=== PATIENT | male | born 1970 | race Caucasian/White ===

== ENCOUNTER 2017-08-16 10:34 | Inpatient (IN) | payer OTHER ==
[2017-08-16] MEDS ORDERED: Fentanyl 100 MCG/2 ML VIAL ONE ×7 (10:40→19:30)
[2017-08-16] MEDS ORDERED: Ketorolac Tromethamine 30 MG/ML VIAL ONE (11:21)
[2017-08-16] MEDS ORDERED: Adacel (T-DAP) 0.5 ML VIAL ONE (11:21)
[2017-08-16 11:29] LABS: Hemoglobin 14.8 g/dL (14.0-18.0); Mean Corpuscular HGB CONC 33.4 g/dL (32.0-36.0); Mean Corpuscular Hemoglobin 30.9 pg (27.0-31.0); Mean Corpuscular Volume 92.7 fl (80.0-94.0); Mean Platelet Volume 7.1 fL (7.4-10.4); Platelet Count 299 thou/uL (130-400); RBC Distribution Width 12.3 % (11.5-14.5); Red Blood Cell (RBC) Count 4.79 mill/uL (4.70-6.10); White Blood Cell (WBC) Count 14.1 thou/uL (4.8-10.8)
[2017-08-16 11:32] LABS: ALT (SGPT) 20 U/L (8-55); AST (SGOT) 23 U/L (5-34); Albumin 4.3 g/dL (3.5-5.0); Alkaline Phosphatase 63 U/L (40-150); Anion Gap 14 mmol/L (10-20); BUN (Urea Nitrogen) 14 mg/dL (8.9-20.6); Bilirubin, Total 0.7 mg/dL (0.2-1.2); Calc. Creatinine Clearance 0 mL/min (70-130); Calcium 9.4 mg/dL (7.8-10.44); Carbon Dioxide 23 mmol/L (22-29); Chloride 105 mmol/L (98-107); Estimated GFR-MDRD 53; Globulin 3.4 g/dL (2.4-3.5); Glucose 145 mg/dL (70-105); Potassium 3.6 mmol/L (3.5-5.1); Protein, Total 7.7 g/dL (6.0-8.3); Sodium 138 mmol/L (136-145)
[2017-08-16 11:34] LABS: CKMB 4.1 ng/mL (0-6.6); Troponin I Less than 0.010 ng/mL (< 0.028)
--- NOTE | 2017-08-16 11:34 | RAD ---
CHEST ONE VIEW: History: Chest injury. FINDINGS: Cardiac silhouette magnified and upper limits of normal. Mediastinum midline. No confluent airspace c onsolidation or evidence of pneumothorax. Left lateral costophrenic angle excluded from the image. Ca rdiac monitor leads overlie the chest. IMPRESSION: No active cardiopulmonary abnormalities demonstrated. POS: TPC
--- NOTE | 2017-08-16 11:37 | RAD ---
THERE VIEWS RIGHT FORELEG: Indication: Trauma with leg pain. Comparison: None. FINDINGS: There is an obliquely oriented comminuted fracture involving the proximal tibial metaphyseal region. There is a poorly threaded screw within the anterior medial aspect of the proximal tibial metaphysis which may reflect a tibial tunnel post from a prior ACL reconstruction. There is an interference scre w partially seen within the distal femur. There is a comminuted obliquely oriented fracture involving the proximal fibular head. No additional fracture is evident. IMPRESSION: Comminuted proximal foreleg fracture. POS: ASIF
[2017-08-16 11:38] LABS: Eosinophils 1 % (0-10); Lymphocytes 31 % (21-51); MDiff Complete? YES; Monocytes 9 % (0-10); Neutrophil 59 % (42-75); RBC Morphology Normal
[2017-08-16] MEDS ORDERED: Ondansetron HCl/PF 4 MG/2 ML Vial IVP PRN ×2 (11:43→18:17)
[2017-08-16] MEDS ORDERED: Morphine 4 MG/ML VIAL SLOW IVP PRN ×2 (11:43→23:05)
[2017-08-16] MEDS ORDERED: Dextrose 50% Abboject 50 ML SYRINGE SLOW IVP PRN (11:43)
[2017-08-16] MEDS ORDERED: Dextrose 5% in Water 1,000 ML IV PRN (11:43)
[2017-08-16] MEDS ORDERED: hydrALAZINE 20 MG/ML VIAL SLOW IVP PRN (11:43)
[2017-08-16] MEDS ORDERED: Ondansetron ODT 4 MG TAB PO PRN (11:43)
--- NOTE | 2017-08-16 11:49 | RAD ---
TWO VIEWS RIGHT TIBIA AND FIBULA: History: 47-year-old male. Trauma. Injury. Pain. FINDINGS: AP and lateral views demonstrate comminuted fracture involving the proximal aspect of the right tibia . Fracture extends intraarticularly into the tibial spine as well as distally into the medial and lat eral cortex of the proximal metaphysis of the right tibia. There is also a fracture through the proxi mal metaphysis of the right fibula. IMPRESSION: 1. Comminuted proximal right tibial fracture. 2. Fracture involving the proximal tibia. POS: ASIF
[2017-08-16] MEDS ORDERED: PHENYLEPHRINE-NS 100 MCG/ML 10 ML SYRINGE ONE (11:56)
[2017-08-16] MEDS ORDERED: PROPOFOL 200 MG/20 ML VIAL ONE (11:56)
[2017-08-16] MEDS ORDERED: ePHEDrine/0.9% NaCl/PF SYRINGE 50 mg/10 ml ONE (11:56)
[2017-08-16] MEDS ORDERED: Dexamethasone 20 MG/5 ML VIAL ONE (11:56)
[2017-08-16] MEDS ORDERED: Lidocaine 1% PF 5 ML VIAL ONE (11:56)
[2017-08-16] MEDS ORDERED: CEFAZOLIN/Water 2 GM/20 ML SYRINGE SLOW IVP SCH (12:00)
[2017-08-16] MEDS ORDERED: Morphine 4 MG/ML VIAL ONE ×2 (12:07→12:29)
--- NOTE | 2017-08-16 12:09 | RAD ---
4 VIEWS RIGHT KNEE: Date: 08/16/17 HISTORY: Right knee trauma and pain. FINDINGS: AP, lateral, and both oblique views of right knee obtained. Images demonstrate a comminuted fracture involving the proximal right tibia. The fracture planes extend into the tibial spine, as well as the medial and lateral aspect of the proximal tibial metaphysis. There is also an oblique fracture involv ing the proximal right fibular metaphysis. Also noted is a suprapatellar hematoma. IMPRESSION: Comminuted proximal tibial fracture. POS: ASIF
--- NOTE | 2017-08-16 12:10 | HP ---
DATE OF ADMISSION: 08/16/2017 ATTENDING PHYSICIAN: Virgil Buchanan M.D. TRAUMA ACTIVATION: Level 2. HISTORY OF PRESENT ILLNESS: Virgil Martino is a 47-year-old male who was loading a cooler full of pota toes from the tailgate of a truck when he began to fall backwards. He fell landing on his right leg, which he says he felt a snap and then give out. He denies head trauma or loss of consciousness. He presented to [facility] via EMS and was evaluated and found to have a proximal tibia fibular fracture. This was reduced and splinted by the ER physician. Orthopedic Surgery was notifie d and Trauma services asked to admit. Upon my evaluation, he has a chief complaint of right lower ex tremity pain described as a dull aching, 07/13. He has received 400 mcg of fentanyl since the time of admission. ALLERGIES: None. CHRONIC MEDICAL ILLNESSES: Depression and anxiety. HOME MEDICATIONS: Include sertraline 200 mg p.o. daily; lamotrigine, unknown dose; acyclovir, unknow n dose; and unknown new antidepressants. SURGICAL HISTORY: History of cholecystectomy, renal stenting, lower back surgery, bilateral knee fitz luiza, right ACL repair, and tonsillectomy. SOCIAL HISTORY: The patient is a restaurant crew. Endorses rare to occasional alcohol use. Uses snuff daily. Denies illicit drug use. REVIEW OF SYSTEMS: A 10 point review of systems was performed and negative except as indicated in th e HPI. FAMILY HISTORY: Significant for father of cardiac disease, age unknown. LABORATORY FINDINGS: WBC 14.1, hemoglobin 14.8, hematocrit 44.4, platelet count 299. Sodium 138, po tassium 3.6, chloride 105, carbon dioxide 23, BUN 14, creatinine 1.43, glucose 145. AST and ALT with in normal limits. Troponin less than 0.010. RADIOGRAPHIC RADIOLOGIC FINDINGS: Chest x-ray without acute cardiopulmonary process or traumatic inj ury. Pre-reduction right tibia and fibula x-ray with a comminuted proximal tibial fracture per radio logy read. Post-reduction films pending knee x-ray pending. ASSESSMENT: 1. Status post fall from tailgate. 2. Proximal tibia fracture. 3. Acute traumatic pain. 4. History of depression and anxiety. PLAN: 1. Admit to Trauma Services. 2. Orthopedic surgery is currently evaluating the patient, they plan for operative intervention late r today. The patient is currently n.p.o. Last oral intake was last night. Perioperative pain manag ement. Postoperative PT and OT. 3. DVT and gastritis prophylaxis as appropriate. Plan for admission were discussed with the patient , who vocalized her understanding. All questions were answered at that time of this dictation. Yoel mckeon attending has been notified of admission.
[2017-08-16] MEDS ORDERED: CEFAZOLIN/Water 2 GM/20 ML SYRINGE ONE (12:39)
--- NOTE | 2017-08-16 13:04 | CON ---
DATE OF CONSULTATION: 08/16/2017 REQUESTING PHYSICIAN: Virgil Chen M.D. CONSULTING PHYSICIAN: Joselo Kennedy M.D. REASON FOR CONSULTATION: Right lower leg deformity and fracture. HISTORY OF PRESENT ILLNESS: This is a 47-year-old male who was unloading an ice chest out of the erasmo k of his pickup this morning. He states that he misstepped and fell backwards off the tailgate of [facility] truck. He states that his right leg buckled and fell beneath him. He denies any other injuries at the time of the fall. He denies any numbness or tingling. He denies any skin injuries. He was bro ught by ambulance to the [place] [facility]. PAST MEDICAL HISTORY: Includes renal disease and kidney stones, anxiety, and depression. PAST SURGICAL HISTORY: Includes ACL repair to both knees. SOCIAL HISTORY: Patient lives alone. He denies any smoking, drinking or illicit drug use. ALLERGIES: No known drug allergies. FAMILY HISTORY: Noncontributory. REVIEW OF SYSTEMS: A 10-point review of systems was conducted and otherwise negative except for as s tated above. PHYSICAL EXAMINATION: VITAL SIGNS: Blood pressure 108/73, pulse of 73, respiratory rate of 16, temperature of 98.6, and O2 saturation of 97% on room air. GENERAL: Patient is awake, alert, and oriented x3. He is in no acute distress. HEENT: Head is normocephalic, atraumatic. NECK: Supple. Breathing is nonlabored. EXTREMITIES: The right lower extremity is in a posterior long leg splint. Distal neurovascular stat us is intact. Remainder of extremity exam is otherwise unremarkable. RADIOGRAPHIC FINDINGS: Show an initial tibia and fibula view obtained when the patient arrived to [facility] Department at 11:03 a.m. This shows a proximal tibia fracture that appears to include [facility] head of the fibula as well. There is displacement present. The patient's fracture was reduced by the emergency department physician and a splint was applied. Post-reduction films taken in the ER in cluding tib/fib views show improved alignment of the fracture site. Four views of the right knee wer e also obtained in the emergency department which show history of a previous ACL reconstruction with hardware present. There does appear to be an intercondylar split and the fracture site of the proxim al tibia. X-rays were reviewed with Dr. Kennedy today. ASSESSMENT: Right proximal tibia fracture. PLAN: options discussed at length with the patient today. We will go forward with an open reduction and internal fixation of the proximal tibia fracture. Risks, benefits, and alternatives discussed. The patient verbalized understanding and is in agreement with the plan of care. The patient is n.p. o. since last night. We will plan to go to the operating room this afternoon for ORIF of the right p roximal tibia.
[2017-08-16] MEDS ORDERED: HYDROmorphone 0.5 MG/0.5 ML SYRINGE ONE ×2 (13:13→20:12)
[2017-08-16] MEDS ORDERED: Scopolamine 1.5 mg/72 hour Patch ONE (14:46)
[2017-08-16] MEDS ORDERED: Midazolam HCl 2 mg/2 ml Vial ONE (16:07)
[2017-08-16] MEDS ORDERED: Promethazine HCl 25 MG/ML VIAL IM PRN (18:17)
[2017-08-16] MEDS ORDERED: Promethazine HCl 25 MG/ML VIAL SLOW IVP PRN (18:17)
[2017-08-16] MEDS ORDERED: HYDROmorphone 2 MG/ML VIAL SLOW IVP PRN (18:17)
--- NOTE | 2017-08-16 18:45 | RAD ---
RIGHT KNEE TWO VIEWS: HISTORY: Postop. COMPARISON: None. FINDINGS: Satisfactory postoperative appearance of the proximal tibial fracture. No hardware complication. Fi bula neck fracture is again seen. IMPRESSION: Satisfactory postoperative appearance. POS: ASIF
--- NOTE | 2017-08-16 20:15 | PRG ---
DATE OF SERVICE: 08/16/2017 SUBJECTIVE: Mr. Martino is seen after a trauma admission by Patricia Delgado. Please see her note for d etails. Briefly, this is a 47-year-old, who fell off the back of the truck, sustained a tib/fib fracture, has now undergone repair by Dr. Kennedy, hemodynamically stable, only real history is depression. PLAN: Admission to the Trauma Service, we will start physical therapy postop.
[2017-08-16 21:08] VITALS: BMI 34.2
[2017-08-16] MEDS: traMADol HCl 50 MG TAB PO SCH ×2 (21:24→21:28)
[2017-08-16] MEDS: Acetaminophen 325 MG TAB PO SCH ×2 (21:24→21:27)
[2017-08-16] MEDS: Sodium Chloride 0.9% 1,000 ML IV SCH (21:26)
[2017-08-16] MEDS: Famotidine 20 MG TAB PO SCH (21:27)
[2017-08-16] MEDS ORDERED: Aspirin 81 mg Enteric Coated Tablet PO SCH (21:45)
[2017-08-16] MEDS: CEFAZOLIN/Water 2 GM/20 ML SYRINGE SLOW IVP SCH (22:02)
[2017-08-16] MEDS ORDERED: Gabapentin 100 MG CAP PO SCH (23:15)
[2017-08-16] MEDS: HYDROcodone/Acetaminophen 10/325 mg Tablet PO PRN (23:55)
[2017-08-17] MEDS: Morphine 4 MG/ML VIAL SLOW IVP PRN ×2 (03:02→06:47)
[2017-08-17] MEDS: Acetaminophen 325 MG TAB PO SCH ×4 (03:05→21:15)
[2017-08-17] MEDS: traMADol HCl 50 MG TAB PO SCH (03:05)
[2017-08-17] MEDS: HYDROcodone/Acetaminophen 10/325 mg Tablet PO PRN (05:09)
[2017-08-17] MEDS: CEFAZOLIN/Water 2 GM/20 ML SYRINGE SLOW IVP SCH ×2 (05:09→14:57)
[2017-08-17] MEDS ORDERED: HYDROcodone/Acetaminophen 10/325 mg Tablet PO SCH ×2 (05:15→12:00)
[2017-08-17 05:31] LABS: #Eosinphils 0.1 thou/uL (0.0-0.7); #Lymphocytes 2.2 thou/uL (1.20-3.40); #Monocytes 1.5 thou/uL (0.11-0.59); #Neutrophils 7.7 thou/uL (1.40-6.50); %Basophils 0.3 % (0.0-1.0); %Eosinophils 0.7 % (0.0-10.0); %Lymphocytes 19.2 % (21.0-51.0); %Monocytes 13.3 % (0.0-10.0); %Neutrophils 66.5 % (42.0-75.0); Hemoglobin 12.4 g/dL (14.0-18.0); Mean Corpuscular HGB CONC 34.1 g/dL (32.0-36.0); Mean Corpuscular Hemoglobin 32.1 pg (27.0-31.0); Mean Corpuscular Volume 94.1 fl (80.0-94.0); Platelet Count 233 thou/uL (130-400); RBC Distribution Width 12.5 % (11.5-14.5); Red Blood Cell (RBC) Count 3.87 mill/uL (4.70-6.10); White Blood Cell (WBC) Count 11.6 thou/uL (4.8-10.8)
[2017-08-17 05:53] LABS: Anion Gap 14 mmol/L (10-20); BUN (Urea Nitrogen) 12 mg/dL (8.9-20.6); Calc. Creatinine Clearance 164 mL/min (70-130); Calcium 8.4 mg/dL (7.8-10.44); Carbon Dioxide 22 mmol/L (22-29); Chloride 102 mmol/L (98-107); Estimated GFR-MDRD 86; Glucose 116 mg/dL (70-105); Magnesium 1.9 mg/dL (1.6-2.6); Phosphorus 3.7 mg/dL (2.3-4.7); Potassium 3.6 mmol/L (3.5-5.1); Sodium 134 mmol/L (136-145)
[2017-08-17] MEDS: Sodium Chloride 0.9% 1,000 ML IV SCH ×2 (06:51→17:25)
[2017-08-17] MEDS: lamoTRIgine 100 MG TAB PO SCH (08:47)
[2017-08-17] MEDS: Acyclovir 800 mg Tablet PO SCH (08:48)
[2017-08-17] MEDS: Famotidine 20 MG TAB PO SCH ×2 (08:48→21:15)
[2017-08-17] MEDS: Bupropion 150 MG XL TAB PO SCH (08:50)
[2017-08-17] MEDS: Aspirin 81 mg Enteric Coated Tablet PO SCH ×2 (08:50→21:16)
[2017-08-17] MEDS: Gabapentin 100 MG CAP PO SCH ×3 (08:51→21:15)
[2017-08-17] MEDS ORDERED: traMADol HCl 50 MG TAB PO SCH (09:00)
[2017-08-17] MEDS ORDERED: diphenhydrAMINE 50 MG/ML VIAL IM PRN (10:48)
[2017-08-17] MEDS ORDERED: Fentanyl 5000 MCG/250 ML CADD IVPB PRN (10:48)
[2017-08-17] MEDS ORDERED: Promethazine HCl 25 MG/ML VIAL IM PRN (10:48)
[2017-08-17] MEDS ORDERED: Ondansetron HCl/PF 4 MG/2 ML Vial IVP PRN (10:48)
[2017-08-17] MEDS ORDERED: diphenhydrAMINE 25 MG CAP PO PRN (10:48)
[2017-08-17] MEDS ORDERED: Zolpidem Tartrate 5 MG TAB PO PRN (10:48)
[2017-08-17] MEDS ORDERED: diphenhydrAMINE 50 MG/ML VIAL IVP PRN (10:48)
[2017-08-17] MEDS ORDERED: Naloxone HCl 0.4 mg/ml Vial IV PRN (10:48)
[2017-08-17] MEDS ORDERED: Communication Order-Pharmacy FS SCH (11:00)
[2017-08-17] MEDS ORDERED: fentaNYL Citrate/PF 2,000 MCG in Sodium Chloride 0.9% 60 ML IV PRN (11:15)
--- NOTE | 2017-08-17 11:52 | PRG ---
DATE OF SERVICE: 08/17/2017 ATTENDING PHYSICIAN: Dr. Virgil Buchanan SUBJECTIVE: Mr. Martino is a 47-year-old male who was loading a cooler full of potatoes from the tail gate of his pickup when he began to fall backwards landing on his right leg. He presented to [facility] Department where a right tibia fracture was identified. He was admitted to the hospit ut by Trauma Services. He was taken to the operating room by Orthopedic Surgery. He is now postoper ative day #1 status post open reduction internal fixation. Last night he did have issues with pain c ontrol postoperatively. Afton was changed from p.r.n. to scheduled. He is seen this morning and is more comfortable. OBJECTIVE: VITAL SIGNS: Temperature 98.0, pulse 70, respirations 20, O2 sat 95% on room air, blood pressure 111 /62. GENERAL: Well-developed, well-nourished male lying in bed in no acute distress. HEENT: Atraumatic, normocephalic. CARDIOVASCULAR: Regular rate and rhythm. Heart sounds normal. CHEST/PULMONARY: Bilateral breath sounds clear to auscultation. No respiratory distress. Chest mov ements symmetrical. ABDOMEN: Soft, nontender, nondistended. MUSCULOSKELETAL: Moves all extremities. Cap refill brisk in all extremities. Neurovascular intact in all extremities. Pulses 2+. Right knee immobilizer in place. right lower extremity. ASSESSMENT: 1. Status post fall. 2. Right tibia/fibula fracture. 3. Status post open reduction and internal fixation right tib/fib fracture. 4. Acute postoperative pain. PLAN: 1. Change hydrocodone to scheduled. 2. Add gabapentin. 3. Begin PT, OT evaluation and treatment. 4. Regular diet. 5. Case management consult for discharge planning. Anticipate patient may need outpatient physical therapy or inpatient rehab. 6. Aspirin 81 mg b.i.d. for DVT prophylaxis. 7. Pepcid for gastritis prophylaxis. The patient was seen and examined with Dr. Buchanan who agrees with the plan.
[2017-08-17] MEDS ORDERED: Sodium Chloride 0.9% 1,000 ML IV SCH (18:00)
--- NOTE | 2017-08-18 01:02 | OP ---
DATE OF SURGERY: 08/16/2017 PREOPERATIVE DIAGNOSIS: Bicondylar tibial plateau fracture, right. POSTOPERATIVE DIAGNOSIS: Bicondylar tibial plateau fracture, right. SURGICAL PROCEDURE: Open reduction and internal fixation of right tibial plateau fracture. ANESTHESIA: General. SURGEON: Joselo Kennedy M.D. SENIOR ELECTRONICS TECHNICIAN: Tamela Victor PA-C ESTIMATED BLOOD LOSS: 100 mL. TOURNIQUET TIME: 65 minutes at 300 mmHg. IMPLANTS: Synthes 8-hole 3.5 mm LCP proximal tibial plate. COMPLICATIONS: None. DRAINS: None. SPECIMEN: None. OUTCOME: Satisfactory. INDICATIONS: The patient is a 47-year-old gentleman, status post fall sustaining a right bicondylar tibial plateau fracture. After discussion with patient including risks and benefits, we decided to p roceed with open reduction and internal fixation. The risks include, but are not limited to bleeding , infection, nerve injury, DVT, PE, loss of limb or life. The patient appears to understand and does wish to proceed. Consent has been obtained. PROCEDURE IN DETAIL: The patient was brought to the operating room and a timeout performed followed by induction of general anesthesia. Next, a sterile prep and drape was performed of the right lower extremity. Next, a curvilinear incision was made over the anterolateral aspect of the proximal lower leg. After skin was sharply incised, dissection was carried down bluntly to expose the fascia of th e anterior compartment as well as to cross over the crest of the tibia. Once we crossed over the cre st, the screw that was used for stabilization of his ACL reconstruction that was visualized and remov ed without difficulty. Next, the fascia of the anterior compartment was incised with a sleeve left a ttached to the proximal tibia. The muscle belly was then reflected off of the tibia posteriorly. Th is allowed for inspection and visualization of the fracture. Next, the fracture hematoma was lavaged from the wound and then the fracture reduced and held in place with bone tenaculum. This was then c hecked with AP lateral C-arm imaging that showed acceptable alignment of the metaphyseal extension an d closure of the intra-articular gap. As such, an 8-hole 3.5 mm LCP proximal tibial plate was applie d to the lateral cortex of the proximal tibia. This was held in place provisionally with a cortical screw below the fracture and then a conical screw through the plateau fragment. This was then follow ed by three locking screws across the plateau and then additional locking screws distally in the lowe r limb of the plate. At the completion of this, there was found to be anatomic alignment of the frac ture on both AP and lateral C-arm images. Next, the wound was irrigated with bulb syringe and then w ound closure performed. A #1 Vicryl was used to reapproximate the fascia of the anterior compartment . This was followed by 2-0 Vicryl and bao for the skin closure. Xeroform gauze, Webril, and Jadiel wrap dressing were applied to the knee, followed by placement in a knee immobilizer. Tourniquet was let down at the completion of dressing, and then patient was transferred to recovery room in stable condition. There were no complications and he tolerated the procedure well.
[2017-08-18] MEDS: Acetaminophen 325 MG TAB PO SCH ×3 (04:44→14:39)
[2017-08-18] MEDS: Acyclovir 800 mg Tablet PO SCH (08:40)
[2017-08-18] MEDS: Famotidine 20 MG TAB PO SCH ×2 (08:40→21:38)
[2017-08-18] MEDS: Gabapentin 100 MG CAP PO SCH ×3 (08:40→21:38)
[2017-08-18] MEDS: lamoTRIgine 100 MG TAB PO SCH (08:41)
[2017-08-18] MEDS: Aspirin 81 mg Enteric Coated Tablet PO SCH ×2 (08:42→21:37)
[2017-08-18] MEDS: Bupropion 150 MG XL TAB PO SCH (08:42)
[2017-08-18] MEDS ORDERED: HYDROcodone/Acetaminophen 7.5/325 mg Tablet PO PRN (16:10)
--- NOTE | 2017-08-18 19:39 | PRG ---
DATE OF SERVICE: 08/17/2017 ATTENDING PHYSICIAN: Virgil Buchanan M.D. SUBJECTIVE: Mr. Martino is a 47-year-old male who had a right tibia fibula fracture. He is postopera tive day #2 status post open reduction internal fixation. He has had postoperative issues with pain control. He was placed on a ACTIVATED SLUDGE ATTENDANT pump yesterday. He reports his pain is much better controlled. He now wants to transition off of the ACTIVATED SLUDGE ATTENDANT pump and onto oral medications. He has been working with [facility] and occupational therapy. OBJECTIVE: VITAL SIGNS: Temperature 98.4, pulse 75, respirations 14, O2 sat 92% room air, blood pressure 116/71 . GENERAL: Well-developed, well-nourished male lying in bed in no acute distress. HEENT: Atraumatic, normocephalic. CARDIOVASCULAR: Regular rate and rhythm. Heart sounds normal. PULMONARY: Bilateral breath sounds clear to auscultation. No respiratory distress. Chest movement symmetrical. ABDOMEN: Soft, nontender, nondistended. Bowel sounds normal. MUSCULOSKELETAL: Moves all extremities. Cap refill brisk in all extremities. Neurovascular intact in all extremities. Pulses 2+ throughout. Knee immobilizer in place, right lower extremity. ASSESSMENT: 1. Status post fall. 2. Right tibia fibula fracture. 3. Status post open reduction and internal fixation and right tibia fibula fracture, postop day. 4. Acute postoperative pain. 5. Pain controlled with ACTIVATED SLUDGE ATTENDANT. PLAN: 1. Transition from ACTIVATED SLUDGE ATTENDANT to oral pain medication. 2. Continue gabapentin as ordered. 3. Continue PT and OT. 4. Continue regular diet. 5. Case management consulted for discharge planning. PT, OT recommending home health therapy servic es. 6. Aspirin 81 mg b.i.d. for DVT prophylaxis. 7. Pepcid for gastritis prophylaxis. 8. If pain well controlled on oral medication, did not anticipate patient will discontinue tomorrow. Patient was reviewed with Dr. Buchanan who agrees with plan.
[2017-08-18] MEDS: HYDROcodone/Acetaminophen 7.5/325 mg Tablet PO PRN (21:37)
[2017-08-18] MEDS ORDERED: Morphine 4 MG/ML VIAL SLOW IVP PRN ×2 (22:37)
[2017-08-19] MEDS: HYDROcodone/Acetaminophen 7.5/325 mg Tablet PO PRN ×3 (01:35→10:18)
[2017-08-19] MEDS: Famotidine 20 MG TAB PO SCH (08:14)
[2017-08-19] MEDS: Aspirin 81 mg Enteric Coated Tablet PO SCH (08:14)
[2017-08-19] MEDS: lamoTRIgine 100 MG TAB PO SCH (08:15)
[2017-08-19] MEDS: Gabapentin 100 MG CAP PO SCH (08:15)
[2017-08-19] MEDS: Acyclovir 800 mg Tablet PO SCH (08:15)
[2017-08-19] MEDS: Bupropion 150 MG XL TAB PO SCH (08:15)
[2017-08-19 11:56] VITALS: BP 131/75; TEMP 98.5
== END 2017-08-19 12:00 | disposition home or self-care (01) | DRG 494 ==
LOC: ERS 10:34 → SURG A 13:34 → SDC 13:36 → SURG A 17:40
PROVIDERS: ADMIT Surgery; ATTEND Surgery
PROC: 0QSG04Z Reposition Right Tibia with Internal Fixation Device, Open Approach (ICD-10-PCS; principal; 2017-08-16)
DX: S82.141A Displaced bicondylar fracture of right tibia, initial encounter for closed fracture (principal); W18.39XA Other fall on same level, initial encounter; Y93.89 Activity, other specified; F32.9 Major depressive disorder, single episode, unspecified; F41.9 Anxiety disorder, unspecified; G89.11 Acute pain due to trauma; G89.18 Other acute postprocedural pain; Z87.442 Personal history of urinary calculi
CPT/HCPCS: 27752; 36415; 71045; 76001; 80048; 80053; 82553; 83735; 84100; 84484; 85025; 90471; 90715; 93005; 96374; 96375; C1713; G0390; G8978-GP-CJ; G8979-GP-CJ; G8987-GO-CK; G8988-GO-CK; G8989-GO-CK; J1100; J1170; J1885; J2001; J2250; J2270; J2704; J3010; J7050

== ENCOUNTER 2018-05-18 07:28 | Day surgery (SDC) | payer OTHER ==
[2018-05-17 16:19] VITALS: BMI 29.7
--- NOTE | 2018-05-18 08:59 | RAD ---
ABDOMEN ONE VIEW: History: Left sided ureteral stone. Comparison: CT 11-25-15 FINDINGS: There is a left ureteral stent insitu. There does appear to be a faint calculus projecting over the l eft midureter measuring up to 3-4 mm at the level of L4. Multiple phleboliths in the pelvis. Right upper quadrant surgical clips. No abnormal calcification pr ojecting over the right renal shadow. Punctate calcifications are seen over the left inferior renal collecting system. IMPRESSION: Left sided renal calculi as well as a left midureteral calculus. POS: CET
[2018-05-18 09:15] LABS: Platelet Count 257 thou/uL (130-400)
[2018-05-18] MEDS ORDERED: Iothalamate Meglumine 60% 50 ML VIAL FS ONE (09:26)
[2018-05-18] MEDS ORDERED: Fentanyl 100 MCG/2 ML VIAL ONE (09:37)
[2018-05-18] MEDS ORDERED: Promethazine HCl 25 MG/ML VIAL ONE (11:04)
--- NOTE | 2018-05-18 12:49 | OP ---
DATE OF PROCEDURE: 05/18/2018 PREOPERATIVE DIAGNOSIS: Left mid ureteral stone and left ureteral stent. POSTOPERATIVE DIAGNOSIS: Left mid ureteral stone and left ureteral stent. PROCEDURE PERFORMED: Left extracorporeal shock wave lithotripsy, cysto removal, left stent, left retrograde, and replacement of left stent. ANESTHETIC: General. ESTIMATED BLOOD LOSS: Not recorded. FINDINGS: There was a 5 mm left mid ureteral stone, that was treated with 3500 shocks at maximum level kv level of 5 to 6. Did appear in fragments. Because the patient is bothered by stents, we went ahead and did a cysto, removed the stent, did a retrograde study. There was still some contrast hanging up in the region, where the stone was with some fragments that had spread out. Because of the patient's difficulty in passing stones and pain related to that, we did not leave him without a stent, but replaced it with a smaller stent and left the string attached to it, it was a 4.8 x 26 cm. OPERATIVE TECHNIQUE: Obtained written verbal consent from the patient after receiving IV antibiotics after being sure we could see the stone on his preop KUB and documenting normal preoperative platelet function assays. The patient was taken to the operating suite. He was placed in the supine position on the treatment table. He was placed in a supine position on the treatment table. PlexiPulses placed in his lower extremities and turned on. He was given a general anesthetic and oral obturator intubation. He was coupled to the lithotripsy unit. The stone was placed in treatment focal point and shockwave therapy was commenced. Because of the mid ureteral stone and pause was not given and it was relatively quickly, we brought up to the level 5 and then after a few 100 shocks to level 6. Fluoroscopy was used intermittently to document stone fragmentation and reposition as necessary. At the end of 3500 shocks, the stone appeared to have fragmented well and there was a good chance, we just removed the stents, and so he was placed in dorsal lithotomy position, sterilely prepped and draped. Cystoscopy was performed with a 22-Cymro sheath. This was well lubricated passed under direct vision through the mid urethra into the urinary bladder with the aid of a 30-degree lens and video camera and monitor. Distal end of the indwelling stent was grasped and brought out through the urethral meatus and removed. The cystoscope was replaced and a 5-Cymro pollock catheter was placed a couple of centimeters up the left ureteral orifice. Contrast was injected in a retrograde manner slowly and it did show some stone fragments and filling defects and air, where the stone was. We filled up the collecting system above and removed it. The distal ureter drained well. The proximal ureter still draining exceedingly well. For this reason, a guidewire was placed and we placed the smaller stent of 4.8 x 26 cm over the guidewire, pushing up into place with aid of a pusher, so its proximal end coiled in the renal pelvis and its distal end coiled in the bladder when the wire was removed. The string was left attached to the exiting urethral meatus. The patient was taken out of dorsal lithotomy position, awakened, extubated, and taken by stretcher to recovery room. Job ID: [id number]
[2018-05-18] MEDS ORDERED: PROPOFOL 200 MG/20 ML VIAL ONE (13:33)
[2018-05-18] MEDS ORDERED: PHENYLEPHRINE-NS 100 MCG/ML 10 ML SYRINGE ONE (13:33)
[2018-05-18] MEDS ORDERED: Lidocaine 1% PF 5 ML VIAL ONE (13:33)
[2018-05-18] MEDS ORDERED: Ondansetron PF 4 MG/2 ML Vial ONE (13:33)
[2018-05-18] MEDS ORDERED: Dexamethasone 20 MG/5 ML VIAL ONE (13:33)
== END 2018-05-18 16:30 | disposition home or self-care (01) ==
LOC: SDC 07:28
PROVIDERS: ATTEND Urology
PROC: 0T778DZ Dilation of Left Ureter with Intraluminal Device, Via Natural or Artificial Opening Endoscopic (ICD-10-PCS; principal; 2018-05-18)
PROC: 0TF7XZZ Fragmentation in Left Ureter, External Approach (ICD-10-PCS; principal; 2018-05-18)
DX: N20.1 Calculus of ureter (principal); F41.9 Anxiety disorder, unspecified; F32.9 Major depressive disorder, single episode, unspecified; Z90.49 Acquired absence of other specified parts of digestive tract; Z79.2 Long term (current) use of antibiotics; Z79.899 Other long term (current) drug therapy; Z98.890 Other specified postprocedural states
CPT/HCPCS: 74018; 85576; C1758; J1100; J2001; J2405; J2550; J2704; J3010; Q9961

== ENCOUNTER 2020-04-11 21:15 | Emergency (ER) | payer OTHER ==
[2020-04-11] MEDS ORDERED: Promethazine HCl 25 MG/ML VIAL ONE (21:52)
[2020-04-11 21:53] LABS: #Basophils 0.1 thou/uL (0.0-0.2); #Eosinphils 0.2 thou/uL (0.0-0.7); #Lymphocytes 3.2 thou/uL (1.20-3.40); #Monocytes 1.2 thou/uL (0.11-0.59); #Neutrophils 5.9 thou/uL (1.40-6.50); %Basophils 0.7 % (0.0-1.0); %Eosinophils 1.6 % (0.0-10.0); %Lymphocytes 30.3 % (21.0-51.0); %Monocytes 11.1 % (0.0-10.0); %Neutrophils 56.3 % (42.0-75.0); Hemoglobin 15.2 g/dL (14.0-18.0); Mean Corpuscular HGB CONC 32.3 g/dL (32.0-36.0); Mean Corpuscular Hemoglobin 29.3 pg (27.0-31.0); Mean Corpuscular Volume 90.9 fL (78.0-98.0); Mean Platelet Volume 7.2 fL (7.4-10.4); Platelet Count 274 thou/uL (130-400); RBC Distribution Width 12.4 % (11.5-14.5); Red Blood Cell (RBC) Count 5.19 mill/uL (4.70-6.10); White Blood Cell (WBC) Count 10.4 thou/uL (4.8-10.8)
[2020-04-11 22:15] LABS: ALT (SGPT) 19 U/L (8-55); AST (SGOT) 17 U/L (5-34); Alkaline Phosphatase 69 U/L (40-110); Anion Gap 12 mmol/L (10-20); BUN (Urea Nitrogen) 10 mg/dL (8.9-20.6); Bilirubin, Total 0.3 mg/dL (0.2-1.2); Calc. Creatinine Clearance 0 mL/min (70-130); Calcium 8.8 mg/dL (7.8-10.44); Carbon Dioxide 26 mmol/L (22-29); Chloride 105 mmol/L (98-107); Globulin 3.3 g/dL (2.4-3.5); Glucose 91 mg/dL (70-105); Potassium 3.9 mmol/L (3.5-5.1); Protein, Total 7.3 g/dL (6.0-8.3); Sodium 139 mmol/L (136-145)
[2020-04-11] MEDS ORDERED: Meclizine HCl 25 MG TAB ONE (22:26)
--- NOTE | 2020-04-11 22:27 | CT ---
EXAM: CT ANGIOGRAM OF THE HEAD INDICATION: Stroke evaluation. Nauseated patient. Patient feels like the room is spinning. COMPARISON: None TECHNIQUE: CT angiogram of the head are performed in the axial plane. Three-dimensional reformatted i mages are submitted for interpretation. FINDINGS: NONCONTRAST HEAD CT: No parenchymal hemorrhage No extra-axial hematoma No midline shift Basilar cisterns are patent Brain volume, age-appropriate Cortical wheatley-white matter differentiation is preserved No hydrocephalus Adequate aeration of the sinuses and mastoid air cells Intact calvarium CTA OF THE HEAD WITH CONTRAST: POSTCONTRAST CT OF BRAIN: Pathologic enhancement: No pathologic enhancement the brain. CTA OF THE BRAIN: Intracranial internal carotid arteries:Carotid artery is symmetric enhancement and luminal diameter Anterior circulation: Appropriate enhancement and luminal diameter the A1 segments, M1 segments, prox imal A2 segments and proximal MCA branches. Intracranial vertebral arteries: Appropriate enhancement and luminal diameter Posterior circulation: Both vertebral arteries supply normal caliber basilar artery. Bilateral P1 seg ments have appropriate enhancement and luminal diameter. IMPRESSION: 1. No hemodynamically significant stenosis, occlusion or aneurysmal formation.
== END 2020-04-11 23:30 | disposition home or self-care (01) ==
LOC: ERS 21:15
DX: R42 Dizziness and giddiness (principal); F17.220 Nicotine dependence, chewing tobacco, uncomplicated
CPT/HCPCS: 70496; 80053; 84484; 85025; 93005; 96374; J2550

== ENCOUNTER 2021-02-28 19:19 | Emergency (ER) | payer OTHER | END 2021-02-28 21:30 | disposition home or self-care (01) | LOC: ERS 19:19 | DX: M54.2 Cervicalgia (principal); M79.644 Pain in right finger(s); F17.220 Nicotine dependence, chewing tobacco, uncomplicated; V49.9XXA Car occupant (driver) (passenger) injured in unspecified traffic accident, initial encounter; W22.10XA Striking against or struck by unspecified automobile airbag, initial encounter; Z79.899 Other long term (current) drug therapy; Z87.442 Personal history of urinary calculi | CPT/HCPCS: 70450; 71045; 72125 ==

== ENCOUNTER → 2021-08-21 | Emergency (ER) | payer OTHER ==
[~2021-08-21] MED LIST: Ketorolac Tromethamine 30 MG/ML VIAL ONE; Ondansetron PF 4 MG/2 ML Vial ONE
[2021-08-21 02:50] LABS: #Basophils 0.1 thou/uL (0.0-0.2); #Eosinphils 0.1 thou/uL (0.0-0.7); #Lymphocytes 2.6 thou/uL (1.20-3.40); #Monocytes 0.8 thou/uL (0.11-0.59); #Neutrophils 6.1 thou/uL (1.40-6.50); %Basophils 0.7 % (0.0-1.0); %Eosinophils 1.5 % (0.0-10.0); %Monocytes 8.4 % (0.0-10.0); %Neutrophils 62.3 % (42.0-75.0); Hemoglobin 15.2 g/dL (14.0-18.0); Mean Corpuscular HGB CONC 33.7 g/dL (32.0-36.0); Mean Corpuscular Hemoglobin 31.4 pg (27.0-31.0); Mean Corpuscular Volume 93.4 fL (78.0-98.0); Mean Platelet Volume 7.4 fL (7.4-10.4); Platelet Count 293 thou/uL (130-400); RBC Distribution Width 12.4 % (11.5-14.5); Red Blood Cell (RBC) Count 4.83 mill/uL (4.70-6.10); White Blood Cell (WBC) Count 9.8 thou/uL (4.8-10.8)
[2021-08-21 03:12] LABS: ALT (SGPT) 17 U/L (8-55); AST (SGOT) 16 U/L (5-34); Albumin 4.3 g/dL (3.5-5.0); Alkaline Phosphatase 81 U/L (40-110); Anion Gap 15 mmol/L (10-20); BUN (Urea Nitrogen) 12 mg/dL (8.9-20.6); Bilirubin, Total 0.5 mg/dL (0.2-1.2); Calc. Creatinine Clearance 0 mL/min (70-130); Calcium 9.5 mg/dL (7.8-10.44); Carbon Dioxide 26 mmol/L (22-29); Chloride 104 mmol/L (98-107); Globulin 3.5 g/dL (2.4-3.5); Glucose 158 mg/dL (70-105); Potassium 3.7 mmol/L (3.5-5.1); Protein, Total 7.8 g/dL (6.0-8.3); Sodium 141 mmol/L (136-145)
== END ==
LOC: ERS 02:21
DX: N20.2 Calculus of kidney with calculus of ureter (principal); F17.200 Nicotine dependence, unspecified, uncomplicated; F17.220 Nicotine dependence, chewing tobacco, uncomplicated
CPT/HCPCS: 74176; 80053; 85025; 96374; 96375; J1885; J2405

== ENCOUNTER 2021-08-28 10:43 | Emergency (ER) | payer OTHER ==
[2021-08-28 11:21] LABS: Bilirubin Negative (Negative); Blood, Urine Negative (Negative); Clarity Clear (Clear); Glucose, Urine (Dipstick) Normal (Negative); Ketone, Urine Negative (Negative); Leukocyte Negative Leu/uL (Negative); Nitrite Negative (Negative); Protein, Urine (Dipstick) 10 mg/dL (Neg-Trace); Specific Gravity, Urine 1.033 (1.002-1.036); Urobilinogen Normal mg/dL (Less than 2)
[2021-08-28 11:24] LABS: #Eosinphils 0.2 thou/uL (0.0-0.7); #Lymphocytes 3.8 thou/uL (1.20-3.40); #Monocytes 1.2 thou/uL (0.11-0.59); #Neutrophils 6.3 thou/uL (1.40-6.50); %Basophils 0.2 % (0.0-1.0); %Eosinophils 1.8 % (0.0-10.0); %Lymphocytes 33.1 % (21.0-51.0); %Monocytes 10.5 % (0.0-10.0); %Neutrophils 54.4 % (42.0-75.0); Hemoglobin 15.7 g/dL (14.0-18.0); Mean Corpuscular HGB CONC 32.4 g/dL (32.0-36.0); Mean Corpuscular Hemoglobin 30.2 pg (27.0-31.0); Mean Corpuscular Volume 93.3 fL (78.0-98.0); Mean Platelet Volume 7.3 fL (7.4-10.4); Platelet Count 312 thou/uL (130-400); RBC Distribution Width 12.3 % (11.5-14.5); Red Blood Cell (RBC) Count 5.19 mill/uL (4.70-6.10); White Blood Cell (WBC) Count 11.6 thou/uL (4.8-10.8)
[2021-08-28] MEDS ORDERED: Ondansetron PF 4 MG/2 ML Vial ONE (11:36)
[2021-08-28] MEDS ORDERED: Ketorolac Tromethamine 30 MG/ML VIAL ONE (11:36)
[2021-08-28 11:42] LABS: ALT (SGPT) 19 U/L (8-55); AST (SGOT) 16 U/L (5-34); Alkaline Phosphatase 84 U/L (40-110); Anion Gap 13 mmol/L (10-20); BUN (Urea Nitrogen) 20 mg/dL (8.9-20.6); Bilirubin, Total 0.3 mg/dL (0.2-1.2); Calc. Creatinine Clearance 0 mL/min (70-130); Carbon Dioxide 24 mmol/L (22-29); Chloride 106 mmol/L (98-107); Globulin 3.7 g/dL (2.4-3.5); Glucose 106 mg/dL (70-105); Potassium 4.2 mmol/L (3.5-5.1); Protein, Total 7.7 g/dL (6.0-8.3); Sodium 139 mmol/L (136-145)
[2021-08-28 11:44] LABS: Band 2 % (5-11); Eosinophils 2 % (0-10); Lymphocytes 34 % (21-51); MDiff Complete? YES; Monocytes 4 % (0-10); Neutrophil 58 % (42-75); RBC Morphology Normal
[2021-08-28] MEDS ORDERED: Levofloxacin 500 mg/D5W 100 ml Premix Bag ONE (13:01)
[2021-08-28] MEDS ORDERED: Acetaminophen 500 MG TAB ONE (13:23)
== END 2021-08-28 14:28 | disposition home or self-care (01) ==
LOC: ERS 10:43
DX: N45.1 Epididymitis (principal); R11.2 Nausea with vomiting, unspecified; F17.220 Nicotine dependence, chewing tobacco, uncomplicated
CPT/HCPCS: 74176; 76870; 80053; 81003; 85025; 93976; 96365; 96375; J1885; J1956; J2405

== ENCOUNTER 2022-12-21 19:18 | Emergency (ER) | payer BC, OTHER ==
[2022-12-21 19:49] LABS: #Basophils 0.1 thou/uL (0.0-0.2); #Eosinphils 0.1 thou/uL (0.0-0.7); #Monocytes 0.8 thou/uL (0.11-0.59); #Neutrophils 6.7 thou/uL (1.40-6.50); %Basophils 0.8 % (0.0-1.0); %Eosinophils 1.3 % (0.0-10.0); %Lymphocytes 23.6 % (21.0-51.0); %Monocytes 8.3 % (0.0-10.0); %Neutrophils 65.8 % (42.0-75.0); Hematocrit 47.2 % (42.0-52.0); Mean Corpuscular HGB CONC 33.9 g/dL (32.0-36.0); Mean Corpuscular Volume 88.6 fl (78.0-98.0); Platelet Count 301 10x3/uL (130-400); RBC Distribution Width 13.4 % (11.5-14.5); Red Blood Cell (RBC) Count 5.33 mill/uL (4.70-6.10); White Blood Cell (WBC) Count 10.1 10x3/uL (4.8-10.8)
[2022-12-21] MEDS ORDERED: Ondansetron PF 4 MG/2 ML Vial ONE (20:12)
[2022-12-21] MEDS ORDERED: Ketorolac Tromethamine 30 MG/ML VIAL ONE (20:12)
[2022-12-21 20:13] LABS: ALT (SGPT) 36 U/L (8-55); AST (SGOT) 18 U/L (5-34); Albumin 4.3 g/dL (3.5-5.0); Alkaline Phosphatase 92 U/L (40-110); Anion Gap 16 mmol/L (10-20); BUN (Urea Nitrogen) 13 mg/dL (8.9-20.6); Bilirubin, Total 0.3 mg/dL (0.2-1.2); Calc. Creatinine Clearance 0 mL/min (70-130); Calcium 9.2 mg/dL (7.8-10.44); Carbon Dioxide 19 mmol/L (22-29); Chloride 107 mmol/L (98-107); Estimated GFR 86; Glucose 127 mg/dL (70-105); Potassium 3.9 mmol/L (3.5-5.1); Protein, Total 8.3 g/dL (6.0-8.3); Sodium 138 mmol/L (136-145)
[2022-12-21 20:18] LABS: Bacteria/HPF None Seen HPF (None Seen); Bilirubin Negative (Negative); Blood, Urine 3+ (Negative); CAUTI Indications for Culture Pelvic or flank pain; Clarity Clear (Clear); Glucose, Urine (Dipstick) Normal (Negative); Ketone, Urine Negative (Negative); Leukocyte 25 Leu/uL (Negative); Mucous/LPF Rare LPF (<2+); Nitrite Negative (Negative); Protein, Urine (Dipstick) 30 mg/dL (Neg-Trace); RBC/HPF Greater than 50 HPF (0-3); Specific Gravity, Urine 1.031 (1.002-1.036); Squamous Epithelial 0-3 HPF (0-3); Urobilinogen Normal mg/dL (Less than 2); WBC/HPF 0-3 HPF (0-3)
[2022-12-21 20:19] LABS: Urine Culture Reflex No No
== END 2022-12-21 21:51 | disposition home or self-care (01) ==
LOC: ERS 19:18
DX: N20.0 Calculus of kidney (principal); F17.220 Nicotine dependence, chewing tobacco, uncomplicated
CPT/HCPCS: 36415; 74176; 80053; 81001; 85025; 96374; 96375; J1885; J2405

== ENCOUNTER 2023-01-14 16:23 | Emergency (ER) | payer BC ==
[2023-01-14] MEDS ORDERED: Morphine 2 MG/ML VIAL ONE (17:02)
[2023-01-14] MEDS ORDERED: Morphine 4 MG/ML VIAL ONE (17:02)
[2023-01-14] MEDS ORDERED: Ondansetron PF 4 MG/2 ML Vial ONE (17:02)
[2023-01-14] MEDS ORDERED: Ketorolac Tromethamine 30 MG/ML VIAL ONE (17:02)
[2023-01-14 17:09] LABS: #Basophils 0.1 thou/uL (0.0-0.2); #Eosinphils 0.1 thou/uL (0.0-0.7); #Monocytes 1.2 thou/uL (0.11-0.59); #Neutrophils 6.8 thou/uL (1.40-6.50); %Basophils 0.5 % (0.0-1.0); %Eosinophils 1.2 % (0.0-10.0); %Lymphocytes 24.7 % (21.0-51.0); %Monocytes 11.2 % (0.0-10.0); %Neutrophils 62.1 % (42.0-75.0); Hematocrit 49.4 % (42.0-52.0); Hemoglobin 17.2 g/dL (14.0-18.0); Mean Corpuscular HGB CONC 34.8 g/dL (32.0-36.0); Mean Corpuscular Hemoglobin 30.4 pg (27.0-31.0); Mean Corpuscular Volume 87.4 fl (78.0-98.0); Mean Platelet Volume 9.9 fL (7.4-10.4); Platelet Count 286 10x3/uL (130-400); RBC Distribution Width 12.9 % (11.5-14.5); Red Blood Cell (RBC) Count 5.65 mill/uL (4.70-6.10); White Blood Cell (WBC) Count 10.9 10x3/uL (4.8-10.8)
[2023-01-14 17:37] LABS: ALT (SGPT) 40 U/L (8-55); AST (SGOT) 19 U/L (5-34); Albumin 5.1 g/dL (3.5-5.0); Alkaline Phosphatase 79 U/L (40-110); Anion Gap 14 mmol/L (10-20); BUN (Urea Nitrogen) 10 mg/dL (8.9-20.6); Bilirubin, Total 0.4 mg/dL (0.2-1.2); Calc. Creatinine Clearance 0 mL/min (70-130); Calcium 9.6 mg/dL (7.8-10.44); Carbon Dioxide 24 mmol/L (22-29); Chloride 104 mmol/L (98-107); Estimated GFR 84; Globulin 3.7 g/dL (2.4-3.5); Glucose 121 mg/dL (70-105); Potassium 3.7 mmol/L (3.5-5.1); Protein, Total 8.8 g/dL (6.0-8.3); Sodium 138 mmol/L (136-145)
[2023-01-14 18:31] LABS: Bacteria/HPF None Seen HPF (None Seen); Bilirubin Negative (Negative); Blood, Urine Negative (Negative); CAUTI Indications for Culture Pelvic or flank pain; Clarity Clear (Clear); Glucose, Urine (Dipstick) Normal (Negative); Ketone, Urine Negative (Negative); Leukocyte 25 Leu/uL (Negative); Nitrite Negative (Negative); Protein, Urine (Dipstick) 20 mg/dL (Neg-Trace); RBC/HPF 0-3 HPF (0-3); Specific Gravity, Urine 1.023 (1.002-1.036); Squamous Epithelial None Seen HPF (0-3); Urobilinogen Normal mg/dL (Less than 2)
[2023-01-14 18:36] LABS: Urine Culture Reflex No No
== END 2023-01-14 19:33 | disposition home or self-care (01) ==
LOC: ERS 16:23
DX: N13.2 Hydronephrosis with renal and ureteral calculous obstruction (principal); F17.220 Nicotine dependence, chewing tobacco, uncomplicated
CPT/HCPCS: 74176; 80053; 81001; 85025; 87086; 96361; 96374; 96375; J1885; J2270; J2272; J2405

== ENCOUNTER 2023-03-07 15:12 | Emergency (ER) | payer BC ==
[2023-03-07] MEDS ORDERED: Acetaminophen 500 MG TAB ONE (16:38)
[2023-03-07 17:21] LABS: SARS-CoV-2 NAA Rapid Test Not Detected (NotDetected)
[2023-03-07] MEDS ORDERED: Ketorolac Tromethamine 30 MG/ML VIAL ONE (17:27)
== END 2023-03-07 18:00 | disposition home or self-care (01) ==
LOC: ERS 15:12
DX: J10.1 Influenza due to other identified influenza virus with other respiratory manifestations (principal); F17.220 Nicotine dependence, chewing tobacco, uncomplicated; Z20.822 Contact with and (suspected) exposure to COVID-19
CPT/HCPCS: 71045; 96372; J1885